=== PATIENT | male | born 1965 | race Two or more races ===

== ENCOUNTER 2017-11-06 18:40 | Emergency (ER) | payer MEDICAID ==
[~2017-11-06] VITALS: Ht 167.6 cm; Wt 109.5 kg
[~2017-11-06 18:40] MED LIST: RIVA20TA PO
[2017-11-06 18:41] VITALS: BP 116/77
[2017-11-06] MEDS ORDERED: ONDANSETRON ODT 8 MG PO ONE (19:30)
[2017-11-06] MEDS ORDERED: HYDROcodone/APAP 5/325 TABLET PO ONE (19:30)
[2017-11-06] MEDS ORDERED: HYDROcodone/APAP 5/325 TABLET ONE (19:33)
[2017-11-06] MEDS ORDERED: ONDANSETRON ODT 4 MG ONE (19:34)
== END 2017-11-06 20:00 | disposition home or self-care (01) ==
LOC: ED 19:50
DX: S22.41XA Multiple fractures of ribs, right side, initial encounter for closed fracture (principal); Z79.01 Long term (current) use of anticoagulants; Z90.49 Acquired absence of other specified parts of digestive tract; W19.XXXA Unspecified fall, initial encounter; Y93.89 Activity, other specified; Y99.8 Other external cause status; Y92.89 Other specified places as the place of occurrence of the external cause
CPT/HCPCS: 71101; 99284; Q0162

== ENCOUNTER 2018-04-20 10:46 | Emergency (ER) | payer MEDICAID ==
[~2018-04-20] VITALS: Ht 167.6 cm; Wt 111.0 kg
[2018-04-20] MEDS ORDERED: FAMOTIDINE 20 MG/2 ML ONE (11:43)
[2018-04-20] MEDS ORDERED: MORPHINE SULFATE 4 MG/ML, 1ML ONE (11:43)
[2018-04-20] MEDS ORDERED: ONDANSETRON ODT 4 MG ONE (11:43)
[2018-04-20 11:59] LABS: BASOPHILS # (AUTO) 0.19 x10^3/uL (0-0.1); BASOPHILS % (AUTO) 2 % (0-1); EOSINOPHILS # (AUTO) 0.32 x10^3/uL (0-0.4); EOSINOPHILS % (AUTO) 4 % (1-7); LYMPHOCYTES # (AUTO) 3.16 x10^3/uL (1-3.4); LYMPHOCYTES % (AUTO) 37 % (22-44); MD NO; MEAN CORPUSCULAR HEMOGLOBIN 32.7 pg (27.5-34.5); MEAN CORPUSCULAR VOLUME 96.2 fL (81-97); MEAN PLATELET VOLUME 9.8 fL (7.4-10.4); MONOCYTES # (AUTO) 0.96 x10^3/uL (0.2-0.8); MONOCYTES % (AUTO) 11 % (2-9); NEUTROPHILS # (AUTO) 3.86 x10^3/uL (1.8-6.8); NEUTROPHILS % (AUTO) 46 % (42-75); PLATELET COUNT 169 x10^3/uL (130-400); RED BLOOD COUNT 4.57 x10^6/uL (4.38-5.82); RED CELL DISTRIBUTION WIDTH 14.3 % (9.4-14.8)
[2018-04-20] MEDS ORDERED: MORPHINE SULFATE 4 MG/ML, 1ML IVPush PRN (12:00)
[2018-04-20] MEDS ORDERED: SODIUM CHLORIDE FLUSH 10ML SYR IVF ONE (12:00)
[2018-04-20] MEDS ORDERED: ONDANSETRON ODT 4 MG PO ONE (12:00)
[2018-04-20] MEDS ORDERED: FAMOTIDINE 20 MG/2 ML IVP ONE (12:00)
[2018-04-20 12:11] LABS: ALANINE AMINOTRANSFERASE 34 U/L (12-78); ALBUMIN 3.7 g/dL (3.4-5.0); ANION GAP 10 mmol/L (5-15); CALCIUM 8.6 mg/dL (8.5-10.1); CHLORIDE 110 mmol/L (98-107); CREATININE 0.85 mg/dL (0.7-1.3)
[2018-04-20 12:13] LABS: ALKALINE PHOSPHATASE 68 U/L (45-117); BILIRUBIN,TOTAL 0.3 mg/dL (0.2-1.0); TOTAL PROTEIN 7.1 g/dL (6.4-8.2)
[2018-04-20 12:25] LABS: MICROSCOPIC NOT IND
[2018-04-20 12:27] LABS: CULTURE INDICATED? NO
[2018-04-20] MEDS ORDERED: OMNIPAQUE 350 MG/ML, 100ML BOTTLE ONE (13:02)
[2018-04-20 13:40] VITALS: BP 103/58
== END 2018-04-20 13:42 | disposition home or self-care (01) ==
LOC: ED 11:55
DX: K42.9 Umbilical hernia without obstruction or gangrene (principal); F17.290 Nicotine dependence, other tobacco product, uncomplicated
CPT/HCPCS: 36415; 74177; 80053; 81003; 85025; 96374; 96375; 99285; Q0162; Q9967; S0028

== ENCOUNTER 2019-06-28 20:29 | Emergency (ER) | payer MEDICAID ==
[~2019-06-28] VITALS: Ht 162.6 cm; Wt 97.7 kg
[~2019-06-28 20:29] MED LIST changes: +ACET325T26 PO; +IBUP-1222 PO; +LIDO700A20 TD; +TRAM-47 PO; +TRAM50TA2 PO
--- NOTE | 2019-06-28 20:57 | NUR ---
ASSESSMENT MADE. PATIENT TO X RAY.
--- NOTE | 2019-06-28 21:06 | NUR ---
back from X ray. patient on chemo - last sunday IV.
[2019-06-28 21:28] LABS: BASOPHILS # (AUTO) 0.03 x10^3/uL (0-0.1); BASOPHILS % (AUTO) 0 % (0-1); EOSINOPHILS # (AUTO) 0.36 x10^3/uL (0-0.4); EOSINOPHILS % (AUTO) 6 % (1-7); LYMPHOCYTES # (AUTO) 1.54 x10^3/uL (1-3.4); LYMPHOCYTES % (AUTO) 24 % (22-44); MD NO; MEAN CORPUSCULAR HEMOGLOBIN 32.3 pg (27.5-34.5); MEAN CORPUSCULAR HGB CONC 32.6 g/dL (33.2-36.2); MEAN PLATELET VOLUME 10.1 fL (7.4-10.4); MONOCYTES # (AUTO) 0.58 x10^3/uL (0.2-0.8); MONOCYTES % (AUTO) 9 % (2-9); NEUTROPHILS # (AUTO) 3.92 x10^3/uL (1.8-6.8); NEUTROPHILS % (AUTO) 61 % (42-75); PLATELET COUNT 118 x10^3/uL (130-400); RED BLOOD COUNT 3.65 x10^6/uL (4.38-5.82); RED CELL DISTRIBUTION WIDTH 15.9 % (9.4-14.8)
[2019-06-28 21:35] LABS: ALBUMIN 3.7 g/dL (3.4-5.0); ANION GAP 6 mmol/L (5-15); CHLORIDE 107 mmol/L (98-107)
[2019-06-28 21:39] LABS: ALANINE AMINOTRANSFERASE 43 U/L (12-78); ALKALINE PHOSPHATASE 64 U/L (45-117); BILIRUBIN,TOTAL 0.2 mg/dL (0.2-1.0); CREATININE 0.94 mg/dL (0.7-1.3); TOTAL PROTEIN 6.7 g/dL (6.4-8.2)
[2019-06-28] MEDS ORDERED: ONDANSETRON 2MG/ML, 2ML ONE (21:50)
[2019-06-28] MEDS ORDERED: HYDROmorphone 1 MG/ML, 1ML VIAL ONE ×2 (21:50→23:42)
[2019-06-28] MEDS ORDERED: SODIUM CHLORIDE FLUSH 10ML SYR IVF ONE (22:00)
[2019-06-28] MEDS ORDERED: ONDANSETRON 2MG/ML, 2ML IVPush ONE (22:00)
[2019-06-28] MEDS: HYDROmorphone 2 MG/ML, 1ML IVPush PRN ×2 (22:02→23:48)
--- NOTE | 2019-06-28 22:02 | NUR ---
IV placed. medicated for pain and nausea. urine sent to lab.
--- NOTE | 2019-06-28 22:12 | NUR ---
patient to CT scan.
[2019-06-28 22:15] LABS: MICROSCOPIC AUTO
[2019-06-28 22:17] LABS: CULTURE INDICATED? YES
--- NOTE | 2019-06-28 22:27 | NUR ---
back from CT scan. awaiting result.
--- NOTE | 2019-06-28 23:25 | NUR ---
chart up for MD to re-eval.
--- NOTE | 2019-06-28 23:48 | NUR ---
patient states pain is coming back. re-medicated. ERP at bedside for re-evaluation.
[2019-06-29] MEDS ORDERED: OMNIPAQUE 350 MG/ML, 100ML BOTTLE ONE
--- NOTE | 2019-06-29 01:05 | NUR ---
[employer] tech at bedside. TLSO applied.
[2019-06-29] MEDS ORDERED: OXYcodone IR 5MG TABLET ONE (01:25)
[2019-06-29] MEDS ORDERED: OXYcodone IR 5MG TABLET PO ONE (01:30)
[2019-06-29 01:41] VITALS: BP 98/51
--- NOTE | 2019-06-29 01:41 | NUR ---
patient discharged with prescription and instruction given to patient and patient's daughter. verbalized understanding.
== END 2019-06-29 01:44 | disposition home or self-care (01) ==
LOC: ED 21:18
DX: M84.48XA Pathological fracture, other site, initial encounter for fracture (principal); C90.00 Multiple myeloma not having achieved remission; M54.9 Dorsalgia, unspecified; F17.200 Nicotine dependence, unspecified, uncomplicated; X58.XXXA Exposure to other specified factors, initial encounter; Y93.89 Activity, other specified; Y92.89 Other specified places as the place of occurrence of the external cause; Y99.8 Other external cause status
CPT/HCPCS: 36415; 71046; 72131; 74177; 80053; 81001; 83690; 85025; 87086; 93005; 96374; 96375; 96376; 99284; J1170; J2405; Q9967